=== PATIENT | female | born 1960 | race African-American/Black ===

== ENCOUNTER 2016-07-06 07:52 | Inpatient (IN) ==
[2016-07-06] MEDS ORDERED: SODIUM CHLORIDE 0.9% 500 ML IV STA (08:13)
--- NOTE | 2016-07-06 08:15 | EKG Report ---
Stationary ECG Study [facility] ER Test Date: 07/06/2016 8:00:50 AM Pat Name: JESSY GARCIA Department: Room: Gender: F Talent Associate: : 1960 Requested by: Ryan Pimentel Order Number: [id number] Reading MD: MICHELLE EPSTEIN Intervals [place] Rate: 113 P: 88 FL: 141 QRS: 33 QRSD: 84 T: 37 QT: 320 QTc: 387 Interpretive Statements SINUS TACHYCARDIA WITH OCCASIONAL SUPRAVENTRICULAR PREMATURE COMPLEXES At 113 bpm Low voltage Electronically Signed On 07-10-16 15:58:31 CDT by MICHELLE EPSTEIN [email or web address]
--- NOTE | 2016-07-06 08:29 | CT Report ---
CT head/brain wo con Indication: Syncope Comparison: None Technique: Multiple axial tomographic images of the brain were obtained without the use of intravenous contrast. Findings: Midline structures are nondisplaced. There is no acute intracranial hemorrhage or evidence of hydrocephalus. Mild senescent mineralization of the bilateral basal ganglia. Mild global volume loss present. Mild periventricular and subcortical hypoattenuation noted which is nonspecific but consistent with chronic microvascular ischemic change. Old appearing deformity of the medial wall of the left orbit. Paranasal sinuses and mastoid air cells are clear. IMPRESSION: No acute intracranial abnormality demonstrated. The CT exam was performed using one or more of the following dose reduction techniques: Automated exposure control, adjustment of the mA and/or kV according to patient size, or use of iterative reconstruction technique. PROCEDURE INTERPRETED AT [facility] DEPARTMENT OF RADIOLOGY Final Report Signed by: Dr Franklyn Spence
[2016-07-06 08:32] LABS: Immature Granulocytes % 0.5 %; Immature Granulocytes Absolute 0.01 #; Lymphocytes # 1.1 10*3/uL (1.4-4.0); Lymphocytes % 53.4 % (21.3-54.2); Mean Corpuscular Hemoglobin 27 PG (27-34); Mean Corpuscular Volume 78.5 FL (87-102); Monocytes # 0.3 10*3/uL (0.11-0.8); Monocytes % 14.9 % (1.7-12.7); Neutrophils # 0.7 10*3/uL (1.4-7.4); Neutrophils % 31.2 % (38.7-73.9); Red Blood Count 1.95 MC/CUMM (3.8-5.5); Red Cell Distribution Width 16.9 % (9.3-17.3); White Blood Count 2.1 T/CUMM (4-12)
[2016-07-06 08:37] LABS: Hematocrit 15.3 VOL% (35.7-47.0); Hemoglobin 5.2 GM/DL (12.0-16.0); Platelet Count 50 T/CUMM (130-400)
[2016-07-06 08:38] LABS: INR 1.2
--- NOTE | 2016-07-06 08:39 | Emergency Department Note ---
Rafa Cowart Gwan, am scribing for, and in the presence of, Ryan Warner MD 08:22 . Alana Cowart James D, MD, personally performed the services described in this documentation, ascribed by Katia Craig in my presence, and it is both accurate and complete 837 . Arrival - Arrival Chief Complaint: Syncope Stated Complaint: Syncope Mode of Arrival: Ambulatory Limitations: No Limitations Source: Patient, Old Records Reviewed, RN Notes Reviewed Time Seen by Provider: 07/06/16 07:55 - History of Present Illness HPI Narrative: Patient is a 56 y/o female who presents to the ED for further evaluation s/p syncopal episode with an onset this morning. Patient has a PMHx of Ovarian CA and family confirmed that her last chemo tx was 3 weeks ago. Patient stated that she was getting ready to go for chemo this morning and she felt near syncope upon being ambulatory. She continued to say that after resting for a short period of time, her sxs did not resolve prompting her visit to the ED for further evaluation. She is also c/o dysuria, nausea and that she last vomit yesterday. Patient confirmed that she was dx with CA 01/2016, that she also has a hx of blood clots in her lungs and that she is currently taking Xarelto. She denies any melena, chest pain or SOB. Patient is followed by OBGYN Oncologist Dr. Sachin Levine III in [facility]. Onset (ago): hour(s) Consistency: constant Severity: moderate Allergies/Adverse Reactions: Allergies Allergy/AdvReac Type Severity Reaction Status Date / Time No Known Allergies Allergy Verified 01/08/16 15:43 Home Medications: Home Medications Medication Instructions Recorded Confirmed Type Furosemide Tab [Lasix Tab] 20 mg PO DAILY 01/08/16 05/29/16 History HYDROcodone/ACETAMIN 10-325 [[place] 1 tablet PO BID 01/08/16 05/29/16 History 10-325] Levothyroxine Tab [Synthroid Tab] 50 mcg PO DAILY 01/08/16 05/29/16 History Montelukast Tab [Singulair Tab] 10 mg PO DAILY 01/08/16 05/29/16 History Omeprazole 40 mg PO DAILY 01/08/16 05/29/16 History Metoprolol Succinate Xl [Toprol Xl] 50 mg PO BID PRN 04/06/16 05/29/16 History Rivaroxaban [Xarelto] 20 mg PO 1700 04/06/16 05/29/16 History Spironolactone 50 mg PO DAILY 04/06/16 05/29/16 History Metoclopramide Tab [Reglan Tab] 5 mg PO ACHS #120 tablet 05/29/16 Rx Polyethylene Glycol Powder 17 gm PO DAILY #12 pack 05/29/16 Rx [Miralax] Promethazine Tab [Phenergan Tab] 12.5 mg PO Q6H #20 tablet 05/29/16 Rx Review of System - Review of System 12 point system: reviewed and no additional remarkable complaints except as stated - Review of System Constitutional: Absent: chills, fever Eyes: Absent: discharge, pain Head/Ears/Nose/Throat: Absent: earache Respiratory: Absent: cough Cardiovascular: Present: as per HPI, syncope Gastrointestinal: Present: as per HPI, nausea. Absent: abdominal pain, vomiting Genitourinary female: Present: as per HPI, dysuria Medical,Surgical,& Family Hx - Medical History Cardio: History of: Cardiac Dysrhythmia (TACHYCARDIA), Hypertension Endocrine: History of: Diabetes Mellitus (NIDDM), Thyroid Disorder Respiratory: History of: Asthma, Pulmonary Embolism Gastrointestinal: History of: GERD Reproductive: History of: Reproductive Cancer (OVARIAN CANCER) Other: History of: Miscellaneous Medical Problems (obesity) - Family History Family History: Reports;: Family Cancer, Family Diabetes, Family Hypertension - Social History Smoking Status: Never smoker Exam Physical Examination: GENERAL: This is an black female in no apparent distress. VITAL SIGNS: HEENT: Head is normocephalic and atraumatic. Pupils are equally round and reactive to light. Extraocular movement are intact. Oropharynx is benign with pale mucous membranes/ pale conjunctiva. NECK: Neck is soft and supple without tenderness. There are no masses. There is no lymphadenopathy. LUNGS: Lungs are clear to auscultation bilaterally. Chest rises symmetrically. There is no chest wall tenderness. CV: Heart is regular rate and rhythm without murmurs, rubs, or gallops. ABDOMEN: Abdomen is soft, non-tender to palpation. There are no abnormal masses palpated. There is no organomegaly. Bowel sounds are present and active. SKIN: Skin is warm and dry. No rash. Patient has pale palms. EXTREMITIES: Patient has full range of motion without tenderness. There is no pedal edema. NEUROLOGIC: Awake, alert, and oriented x4. Cranial nerves II through XII are grossly intact. There are no motorsensory deficits. PSYCHIATRIC: Normal affect. Normal mood. Vital Signs: Vital Signs Temperature 97.9 F 07/06/16 07:55 Pulse Rate 99 H 07/06/16 08:45 Respiratory Rate 18 07/06/16 08:45 Blood Pressure 126/78 07/06/16 08:45 O2 Sat by Pulse Oximetry 100 07/06/16 08:45 Course - Consultations Consultation #1: Discussed with hospitalist. Patient will be admitted to their service. Time: 08:38 Results - Labs CBC & BMP: 07/06/16 08:18 Lab Results: I have reviewed the patients labs Labs: Laboratory Tests 07/06/16 07/06/16 08:18 08:18 WBC 2.1 L Hgb 5.2 L* Hct 15.3 L* Plt Count 50 L INR 1.2 Laboratory Tests 07/06/16 07/06/16 08:18 08:18 WBC 2.1 L RBC 1.95 L Hgb 5.2 L* Hct 15.3 L* MCV 78.5 L Plt Count 50 L Neut % (Auto) 31.2 L [place] % (Auto) 14.9 H Neut # (Auto) 0.7 L Lymph # (Auto) 1.1 L Segmented Neutrophils 34 L INR 1.2 PT Patient/Control Mix 13.0 - EKG EKG results: interpreted by ERMD - Impressions EKG: Sinus tachycardia with a rate of 113, occasional supraventricular premature complexes, nonspecific ST-T wave changes, low voltage QRS. - Diagnostic Findings Procedure: Chest x-ray: report reviewed by me, image reviewed by me (No infiltrates, no pleural effusions.), CT: report reviewed by me, image reviewed by me (Head CT: No acute intracranial abnormality demonstrated. ) Disposition Clinical Impression: Ovarian cancer, Anemia, History of pulmonary embolism, Thrombocytopenia Case discussed with: patient, patient's family Disposition: Still a Patient Condition: Stable Time of Disposition: 08:37
--- NOTE | 2016-07-06 08:41 | XRay Report ---
XR chest 1V portable Indication: SOB Comparison: None Technique: Single frontal view of the chest Findings: Heart size appears within normal limits. Port catheter tip noted within the SVC. No focal consolidation, pleural effusion, or pneumothorax. Osseous and surrounding soft tissue structures demonstrate no acute abnormality. IMPRESSION: No acute cardiopulmonary process demonstrated. PROCEDURE INTERPRETED AT [facility] DEPARTMENT OF RADIOLOGY Final Report Signed by: Dr Franklyn Spence
[2016-07-06 08:54] LABS: Band Neutrophils 1 % (0-10); Hypochromasia 1+; Lymphocytes 53 % (20-55); Metamyelocytes 1 %; Microcytosis 1+; Nucleated Red Blood Cells 3 (0-5); Platelet Estimate Decreased; Segmented Neutrophils 34 % (50-85); Total Cells Counted 100
[2016-07-06 08:55] LABS: Ovalocytes Slight; Target Cells Slight
--- NOTE | 2016-07-06 09:24 | Hospitalist History & Physical ---
<Ralf Castrejon - Last Filed: 07/06/16 10:01> Assessment and Plan (1) Ovarian cancer Status: Acute Assessment and plan: Patient being followed by Dr. Sachin Morales in [facility]. Current Visit: Yes (2) Anemia Status: Acute Assessment and plan: Patient admitted to the oncology unit. Telemetry monitoring. Transfuse 2 units of blood initially then recheck H&H. Repeat labs in a.m. Gentle hydration. Current Visit: Yes (3) History of pulmonary embolism Status: Acute Assessment and plan: Pt. has IVC filter in place. Confirmed by CXR Current Visit: Yes (4) Thrombocytopenia Status: Acute Assessment and plan: Secondary to ovarian cancer. Pt. currently taking chemotherapy. Current Visit: Yes History of Present Illness Chief complaint: syncopal epsiode History of present illness: Ms. Pozo is a 56-year-old black female ovarian cancer patient with a history of hypertension and pulmonary emboli (IVC filter in place)that presented to the ED via EMS today after having a syncopal episode at home. The patient was on her way to chemotherapy with Dr. Sachin Morales in [place], [place] and was being wheeled out to the car when she lost consciousness for about a minute. This was witnessed by her daughter was present at the bed side. Patient states she has been feeling lightheaded and weak for the past couple of days. This has been associated with shortness of breath. Pt states that a similar episode occurred 3 weeks ago before her last chemo session. Pt denies loss of vision or hearing, numbness or tingling. Pt reports nausea and vomiting states it has been going on since chemo. On arrival to the ED, patients H&H was found to be 5.2 and 15.3. Patient was admitted to the hospitalist service for further evaluation and treatment. Home Medications Medication Instructions Recorded Confirmed Type Furosemide Tab [Lasix Tab] 20 mg PO QAM 01/08/16 07/06/16 History HYDROcodone/ACETAMIN 10-325 [[place] 1 tablet PO BID PRN 01/08/16 07/06/16 History 10-325] Levothyroxine Tab [Synthroid Tab] 50 mcg PO QAM 01/08/16 07/06/16 History Montelukast Tab [Singulair Tab] 10 mg PO QPM 01/08/16 07/06/16 History RX: Omeprazole 40 mg PO QAM 01/08/16 07/06/16 History RX: Spironolactone 50 mg PO QAM 04/06/16 07/06/16 History Rivaroxaban [Xarelto] 20 mg PO 1700 04/06/16 07/06/16 History Metoclopramide Tab [Reglan Tab] 5 mg PO ACHS #120 tablet 05/29/16 07/06/16 Rx Polyethylene Glycol Powder 17 gm PO DAILY PRN 07/06/16 07/06/16 History [Miralax] Allergies Allergy/AdvReac Type Severity Reaction Status Date / Time No Known Allergies Allergy Verified 01/08/16 15:43 Medical,Surgical,& Family Hx - Medical History Cardio: History of: Cardiac Dysrhythmia (TACHYCARDIA), Hypertension Endocrine: History of: Diabetes Mellitus (NIDDM), Thyroid Disorder Respiratory: History of: Asthma, Pulmonary Embolism Gastrointestinal: History of: GERD Reproductive: History of: Reproductive Cancer (OVARIAN CANCER) Other: History of: Miscellaneous Medical Problems (obesity) - Family History Family History: Reports;: Family Cancer, Family Diabetes, Family Hypertension - Social History Smoking Status: Never smoker Frequency of Alcohol Use: None Type of Drug Use: Unknown Marital Status: Unknown Lives With:: Children Functional capacity: uses cane/walker - Constitutional Constitutional: Present: fatigue, weakness. Absent: fever(s) - EENT Eyes: Absent: blurry vision, loss of vision Ears: Absent: decreased hearing, ear discharge Nose, mouth and throat: Absent: epistaxis, headache(s) - Cardiovascular Cardiovascular: Present: dyspnea on exertion, edema, lightheadedness. Absent: chest pain at rest - Respiratory Respiratory: Present: dyspnea on exertion. Absent: wheezing - Gastrointestinal Gastrointestinal: Present: nausea, vomiting. Absent: abdominal pain - Genitourinary Genitourinary: Present: hematuria. Absent: difficulty urinating - Musculoskeletal Musculoskeletal: Present: muscle weakness. Absent: muscle cramps - Neurological Neurological: Present: dizziness. Absent: confusion, numbness - Psychiatric Psychiatric: Absent: confusion - Endocrine Endocrine: Present: cold intolerance Exam - Constitutional General appearance: no acute distress, over weight - Head Head exam: Present: normal inspection, normocephalic - Eye Eye exam: Present: EOMI. Absent: scleral icterus Pupils: Present: KELI. Absent: fixed - Respiratory Respiratory exam: Present: clear to auscultation bilaterally. Absent: wheezes - Cardiovascular Cardiovascular exam: Present: regular rate and rhythm - GI/Abdominal GI/Abdominal exam: Present: normal bowel sounds, soft. Absent: tenderness - Extremities Exam Extremities exam: Present: normal capillary refill, full ROM, edema - Neurological Exam Neurological exam: Present: alert, oriented X3, normal gait - Skin Skin exam: Present: warm, dry, pallor Results - Labs CBC & BMP: 07/06/16 08:18 07/06/16 08:18 Lab Results: I have reviewed the past 24 hour labs <Vero Hodges - Last Filed: 07/06/16 15:40> History of Present Illness History of present illness: Ms. Pozo is a 56 year old female with a history of ovarian cancer currently undergoing chemotherapy who presented with a chief complaint of weakness and syncope. According to the patient and the daughter she has been feeling weak with dizziness for approximately 2 weeks. She was sitting in her wheelchair preparing to go out of town for chemo today when she suddenly felt weak and her head rolled back and her eyes rolled to the back of her head. Daughter reports that she lost consciousness for approximately 1 minute. She did not hit her head or fall. She denies any tongue biting, urinary or fecal incontinence or jerking. Patient reports that she has had a poor appetite over the last few weeks due to chemotherapy and she did not eat breakfast this morning. She does report intermittent nausea and vomiting and her last emesis was 1 day ago. She denies any abdominal pain. She reports some intermittent dysuria and saw 2 small specks of hematuria 2 weeks ago. Her oncologist was notified and she has noted none since. She denies any melena or bright red blood per rectum. She denies any epistaxis. No bleeding gums. A 10 point review of systems was reviewed with the patient and daughter and was otherwise unremarkable. Past medical history: Hypertension, ovarian cancer, PE status post IVC filter, thrombocytopenia, obstructive sleep apnea (patient denies--this was listed in her old records), hypothyroidism, enlarged heart, GERD Past surgical history: 2, Mediport placement, paracentesis 2 MEDS: Reviewed Allergies: No known drug allergies Family history: Mother had diabetes mellitus and breast cancer; 4 sisters and niece-breast cancer; 1 sister with ovarian cancer Social history: She denies any tobacco alcohol or illicit drug use. She is . Lives with her 2 daughters.. She is a full code. PE: Vitals reviewed GEN: A and O x 3, pale HEENT: pale conjunctiva, PERRL, EOMI, sclera clear NECK: Supple, no JVD CV: RRR no M LUNGS: CTAB nonlabored ABDOMEN: Soft, NT, ND, +BS EXT: Warm no c/c/e NEURO: nonfocal. labs/ Investigative studies reviewed A/P: 1. Symptomatic anemia in a patient with pancytopenia likely due to chemotherapy - transfuse 2 units of PRBCs. Will ask hematology to see as pt may benefit from neupogen prior to next chemo treatment - recheck H and H - check Vitamin B12, folic acid, iron, tibc and ferritin - FOBT and check UA - Check orthostatics after transfusion. 2. Ovarian cancer currently undergoing chemotherapy - ask hematology to eval. Hold chemo for now 3. Hypokalemia - replace. Check Mg and Phos and replace as needed 4. History of PE s/p IVC filter 5. 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 Exam - Constitutional Vitals: Period Temp Pulse Resp BP Sys/Greene Pulse Ox Last 24 Hr 96.3 F-98 F 85-117 18-20 94-139/56-77 100 Results - Labs CBC & BMP: 07/06/16 08:18 07/06/16 08:18
[2016-07-06 09:27] LABS: Apearance,Urine CLOUDY (Clear); Bacteria,Urine Many /HPF (Few); Bilirubin,Urine Negative (Negative); Blood, Urine Moderate mg/dL (Negative); Glucose,Urine (UA) Negative (Negative); Ketones,Urine 5 mg/dL (Negative); Mucus,Urine Occasional /LPF (Occasional); Nitrite,Urine Negative (Negative); Protein,Urine Negative; RBC,Urine 14 /HPF (0-4); Squamous Epithelial Cell,Urine Occasional /HPF (0-10); Urine Color Yellow (Yellow); WBC,Urine 59 /HPF (0-6)
[2016-07-06 09:52] LABS: Albumin 2.4 G/DL (3.4-5.0); Calcium 6.5 MG/DL (8.5-10.1); Osmolality,Calculated 278.3 MOS/KG (273-304); Potassium 3.1 MMOL/L (3.5-5.1); Total Protein 6.4 G/DL (6.4-8.3); Troponin I Only 0.044 NG/ML (0.00-0.045)
[2016-07-06] MEDS ORDERED: ACETAMINOPHEN 325 MG TABLET PO PRN (10:00)
[2016-07-06] MEDS ORDERED: SODIUM CHLORIDE 0.9% 250 ML IV PRN (10:00)
[2016-07-06] MEDS ORDERED: RIVAROXABAN 20 MG TABLET PO SCH (17:00)
[2016-07-06] MEDS: POTASSIUM CHLORIDE 20 MEQ TABLET PO PRN ×3 (17:32→22:48)
[2016-07-06] MEDS ORDERED: HEPARIN LOCK FLUSH 500 UNIT/5 ML SYRINGE IV ONE (18:27)
[2016-07-06 18:55] LABS: % Iron Saturation 93.3 % (18-50); Free T4 (Free Thyroxine) 1.49 NG/DL (0.76-1.46); Magnesium 0.8 MG/DL (1.8-2.4); Phosphorous 2.3 MG/DL (2.5-4.9); Thyroid Stimulating Hormone 3.62 uIU/ml (0.358-3.74)
[2016-07-06 20:31] LABS: 25 Hydroxy Vitamin D Total 5.9 NG/ML
[2016-07-06] MEDS: MONTELUKAST 10 MG TABLET PO SCH (20:46)
[2016-07-07] MEDS: POTASSIUM CHLORIDE 20 MEQ TABLET PO PRN ×3 (00:43→13:36)
[2016-07-07 04:58] LABS: Eosinophils % 0.5 % (0.00-10.9); Hematocrit 20.1 VOL% (35.7-47.0); Immature Granulocytes % 0.5 %; Immature Granulocytes Absolute 0.01 #; Lymphocytes # 1.1 10*3/uL (1.4-4.0); Lymphocytes % 55.9 % (21.3-54.2); Mean Corpuscular HGB Conc 34.8 GM/DL (32-36); Mean Corpuscular Hemoglobin 27 PG (27-34); Mean Corpuscular Volume 78.5 FL (87-102); Mean Platelet Volume 12.1 FL (9.6-12.0); Monocytes # 0.4 10*3/uL (0.11-0.8); Monocytes % 21.3 % (1.7-12.7); Neutrophils # 0.4 10*3/uL (1.4-7.4); Neutrophils % 21.8 % (38.7-73.9); Platelet Count 50 T/CUMM (130-400); Red Blood Count 2.56 MC/CUMM (3.8-5.5); Red Cell Distribution Width 16.5 % (9.3-17.3)
[2016-07-07 05:17] LABS: INR 1.1; PT Patient Result 12.2 SECS
[2016-07-07 05:25] LABS: Band Neutrophils 1 % (0-10); Hypochromasia 1+; Lymphocytes 53 % (20-55); Ovalocytes Slight; Platelet Estimate Decreased; Segmented Neutrophils 28 % (50-85); Total Cells Counted 100
[2016-07-07 05:26] LABS: Microcytosis Slight
[2016-07-07 05:42] LABS: Osmolality,Calculated 276.3 MOS/KG (273-304); Potassium 3.5 MMOL/L (3.5-5.1); Risk Ratio 4.88; Thyroid Stimulating Hormone 2.45 uIU/ml (0.358-3.74); VLDL CHOLESTEROL 30.2 MG/DL
[2016-07-07] MEDS: LEVOTHYROXINE 50 MCG TABLET PO SCH (06:50)
[2016-07-07] MEDS ORDERED: FILGRASTIM-SNDZ 300 MCG/0.5 ML SYRINGE SUBCUT ONE (09:14)
--- NOTE | 2016-07-07 09:17 | Hospitalist Progress Note ---
Hospitalist: Subjective Interval history: I feel better but still slightly weak. Tolerating oral intake. No abdominal pain. No melena or bright red blood per rectum. No hematuria. Exam - Constitutional Vitals: Period Temp Pulse Resp BP Sys/Greene Pulse Ox Last 24 Hr 96.3 F-98.7 F 80-93 16-20 94-116/56-78 96-100 Exam: GEN: A and O x 3, pale HEENT: pale conjunctiva, PERRL, EOMI, sclera clear NECK: Supple, no JVD CV: RRR no M LUNGS: CTAB nonlabored ABDOMEN: Soft, NT, ND, +BS EXT: Warm no c/c/e NEURO: nonfocal. Results - Labs CBC & BMP: 07/07/16 02:41 07/07/16 02:41 - Impressions 1. Symptomatic anemia in a patient with pancytopenia likely due to chemotherapy - transfused 2 units of PRBCs. Will transfuse an additional 2 units. will ask hematology to see as pt may benefit from neupogen prior to next chemo treatment - recheck H and H - Vitamin B12, folic acid, iron, tibc and ferritin checked in review - FOBT now sent. UA reviewed. UCx pending - Check orthostatics after transfusion. 2. Ovarian cancer currently undergoing chemotherapy - ask hematology to eval. Hold chemo for now 3. Hypokalemia - replaced. 4. History of PE s/p IVC filter hold blood thinners due to low plt count and increased risk of bleeding. F/U with her oncologist 5. Morbid obesity BMI 43 6. Acute cystitis- start nitrofurantoin and f/u UCx Possible dc after eval by hematology/ oncology and next 4 units complete D/W pt, family, HOUSING LIAISON and all questions answered.
--- NOTE | 2016-07-07 09:18 | Oncology Consult Note ---
Assessment and Plan (1) Ovarian cancer Status: Acute Current Visit: Yes (2) Anemia Status: Acute Current Visit: Yes (3) Thrombocytopenia Status: Acute Current Visit: Yes History of Present Illness History of present illness: Ms. Pozo is a 56 year old female with advanced ovarian cancer being treated in [place] who was admitted yesterday after a syncopal episode. She was found to have a hemoglobin around 5. She has been transfused 2 units of blood and feels significantly better. Oncology here has been consulted for any further recommendations. The patient states she was due chemotherapy yesterday. She states due to syncopal episode she was not able to receive it. The doctors in [place] had recently changed her chemotherapy regimen and this is what has most likely led to her new onset pancytopenia. Since she feels much better I do not see any reason for further transfusions at this time. She can be discharged home from an oncology standpoint we will give her 1 dose of Neupogen today to try to jump start her white blood cell count. She states she has never received Neupogen or Neulasta. She needs to reestablish follow-up with her primary oncologist sometime in the next week or 2. Home Medications Medication Instructions Recorded Confirmed Type Furosemide Tab [Lasix Tab] 20 mg PO QAM 01/08/16 07/06/16 History HYDROcodone/ACETAMIN 10-325 [[place] 1 tablet PO BID PRN 01/08/16 07/06/16 History 10-325] Levothyroxine Tab [Synthroid Tab] 50 mcg PO QAM 01/08/16 07/06/16 History Montelukast Tab [Singulair Tab] 10 mg PO QPM 01/08/16 07/06/16 History Omeprazole 40 mg PO QAM 01/08/16 07/06/16 History Rivaroxaban [Xarelto] 20 mg PO 1700 04/06/16 07/06/16 History Spironolactone 50 mg PO QAM 04/06/16 07/06/16 History Metoclopramide Tab [Reglan Tab] 5 mg PO ACHS #120 tablet 05/29/16 07/06/16 Rx Polyethylene Glycol Powder 17 gm PO DAILY PRN 07/06/16 07/06/16 History [Miralax] Allergies Allergy/AdvReac Type Severity Reaction Status Date / Time No Known Allergies Allergy Verified 01/08/16 15:43 Medical,Surgical,& Family Hx - Medical History Cardio: History of: Cardiac Dysrhythmia (TACHYCARDIA), Hypertension Comment Only: Cardiovascular Problems (filter for blood clots) Endocrine: History of: Diabetes Mellitus (NIDDM), Thyroid Disorder Respiratory: History of: Asthma, Pulmonary Embolism Gastrointestinal: History of: GERD Reproductive: History of: Reproductive Cancer (OVARIAN CANCER) Other: History of: Miscellaneous Medical Problems (obesity) - Surgical History Cardiac Surgeries: Sugical HX of: Vascular Access Devices - Family History Family History: Reports;: Family Cancer, Family Diabetes, Family Hypertension - Social History Smoking Status: Never smoker Frequency of Alcohol Use: None Type of Drug Use: Unknown Exam - Constitutional Vitals: Period Temp Pulse Resp BP Sys/Greene Pulse Ox Last 24 Hr 96.3 F-98.7 F 80-117 16-20 94-139/56-78 96-100 General appearance: normal weight, no acute distress - Head Head Exam: Present: normocephalic, atraumatic - Eye Eye Exam: Present: EOMI Pupils: Present: PERRL - ENT ENT exam: Present: normal exam, normal oropharynx - Neck Neck exam: Absent: lymphadenopathy, thyromegaly - Respiratory Respiratory exam: Present: CTAB. Absent: wheezes Results - Labs CBC & BMP: 07/07/16 02:41 07/07/16 02:41 Lab Results: I have reviewed the past 24 hour labs
[2016-07-07] MEDS: PANTOPRAZOLE 40 MG TABLET PO SCH (09:26)
--- NOTE | 2016-07-07 09:39 | Discharge Summary ---
<Ralf Castrejon - Last Filed: 07/07/16 09:20> Hospital Course - Hospital Course Hospital Course: Ms. Pozo is a 56-year-old black female ovarian cancer patient with a history of hypertension, DAYRON, thrombocytopenia, GERD, enlarged heart and pulmonary emboli (IVC filter in place)that presented to the ED via EMS today after having a syncopal episode at home. The patient was on her way to chemotherapy with Dr. Sachin Morales in [place], [place] and was being wheeled out to the car when she lost consciousness for about a minute. She felt weak and her head rolled back and her eyes rolled back into her head. This was witnessed by her daughter who was present in the ED. Patient stated she had been feeling lightheaded and weak for the past couple of days. This has been associated with shortness of breath. Pt states that a similar episode occurred 3 weeks ago before her last chemo session. On arrival to the ED, patients H&H was found to be 5.2 and 15.3. Patient was admitted to the hospitalist service for further evaluation and treatment. Oncology was also consulted to evaluate patient. Pt. received 2 units of PRBCs and her H&H improved. Pt. was reported to be feeling better. She was seen by oncology this morning for evaluation. Dr. Desai didn't suggest any further transfusions at this point. He has ordered a dose of Neupogen this am and states that the patient can be discharged. She is to follow up with her primary oncologist in the next week. Pt. to be discharged. Diagnosis - Discharge Diagnosis (1) Ovarian cancer Status: Acute (2) Anemia Status: Acute (3) History of pulmonary embolism Status: Acute (4) Thrombocytopenia Status: Acute Specialty Discharge - Follow Up or Referrals Follow up with: Sachin Levine [Other] - 2 Weeks (Oncologist at [facility] in [facility]) , PCP [Other] - 1 Week Discharge Plan - Discharge Data Disposition: Disch To Home/Self Care - Discharge Medications New Acetaminophen Tab [Tylenol Tab] 650 mg PO Q4H PRN #0 tablet PRN Reason: Fever, Headache, Mild Pain Ergocalciferol [Drisdol] 50,000 unit PO Q7D #4 capsule Nitrofurantoin Macro/[place] [Macrobid] 100 mg PO Q12H #20 capsule Continue Levothyroxine Tab [Synthroid Tab] 50 mcg PO QAM HYDROcodone/ACETAMIN 10-325 [[place] 10-325] 1 tablet PO BID PRN PRN Reason: Pain Omeprazole 40 mg PO QAM Montelukast Tab [Singulair Tab] 10 mg PO QPM Polyethylene Glycol Powder [Miralax] 17 gm PO DAILY PRN PRN Reason: Constipation Spironolactone 50 mg PO QAM Metoclopramide Tab [Reglan Tab] 5 mg PO ACHS #120 tablet Changed Furosemide Tab [Lasix Tab] 20 mg PO QAM PRN #0 PRN Reason: Edema Discontinued Rivaroxaban [Xarelto] 20 mg PO 1700 - Follow Up or Referral - Forms/Instructions Exam - Constitutional Vitals: Period Temp Pulse Resp BP Sys/Greene Pulse Ox Last 24 Hr 96.0 F-98.7 F 80-98 16-20 95-119/60-78 95-100 Discharge Results Procedures and tests throughout hospitalization: Pending Orders 07/06/16 Urine Culture Routine 07/08/16 04:00 Basic Metabolic Panel IN AM Comp Blood Count Auto Diff IN AM Labs on day of discharge: Labs from last 24 hours 07/07/16 07/07/16 07/07/16 11:28 02:41 02:41 WBC RBC Hgb Hct MCV MCH MCHC RDW Plt Count MPV Neut % (Auto) Lymph % (Auto) [place] % (Auto) Eos % (Auto) Baso % (Auto) Neut # (Auto) Lymph # (Auto) [place] # (Auto) Eos # (Auto) Baso # (Auto) Total Counted Immature Gran % Nucleated RBC % Immature Gran # Segmented Neutrophils Band Neutrophils Lymphocytes Monocytes Nucleated RBCs # Platelet Estimate Hypochromasia Microcytosis Ovalocytes Morphology Comment INR 1.1 PT Patient/Control Mix 12.2 Sodium 141 Potassium 3.5 Chloride 106 Carbon Dioxide 24 Anion Gap 14.5 BUN 5 L Creatinine 0.80 GFR Calculation 117 BUN/Creatinine Ratio 6.00 Glucose 78 Calculated Osmolality 276.3 Calcium 6.0 L Phosphorus Magnesium Iron TIBC % Saturation Ferritin Triglycerides 151 H Cholesterol 166 LDL Cholesterol 100.0 VLDL Cholesterol 30.2 HDL Cholesterol 34 L Heart Disease Risk Ratio 4.88 Vitamin B12 25-OH Vitamin D Total Free T4 TSH 3rd Generation 2.450 Blood Type Cancelled Antibody Screen Cancelled Crossmatch See Detail Blood Bank Comment Cancelled 07/07/16 07/06/16 07/06/16 02:41 20:04 18:24 WBC 2.0 L RBC 2.56 L D Hgb 7.0 L D Hct 20.1 L MCV 78.5 L MCH 27 MCHC 34.8 RDW 16.5 Plt Count 50 L MPV 12.1 H Neut % (Auto) 21.8 L Lymph % (Auto) 55.9 H Erie % (Auto) 21.3 H Eos % (Auto) 0.5 Baso % (Auto) 0.0 Neut # (Auto) 0.4 L Lymph # (Auto) 1.1 L [place] # (Auto) 0.4 Eos # (Auto) 0.0 Baso # (Auto) 0.0 Total Counted 100 Immature Gran % 0.5 Nucleated RBC % 0.0 Immature Gran # 0.01 Segmented Neutrophils 28 L Band Neutrophils 1 Lymphocytes 53 Monocytes 18 H Nucleated RBCs # 0.00 Platelet Estimate Decreased Hypochromasia 1+ Microcytosis Slight Ovalocytes Slight Morphology Comment INR PT Patient/Control Mix Sodium Potassium Chloride Carbon Dioxide Anion Gap BUN Creatinine GFR Calculation BUN/Creatinine Ratio Glucose Calculated Osmolality Calcium Phosphorus 2.3 L Magnesium 0.8 L Iron 153 TIBC 164 L % Saturation 93.3 H Ferritin 3459.0 H Triglycerides Cholesterol LDL Cholesterol VLDL Cholesterol HDL Cholesterol Heart Disease Risk Ratio Vitamin B12 1482 H 25-OH Vitamin D Total 5.9 Free T4 1.49 H TSH 3rd Generation 3.620 Blood Type Antibody Screen Crossmatch Blood Bank Comment 07/06/16 10:00 WBC RBC Hgb Hct MCV MCH MCHC RDW Plt Count MPV Neut % (Auto) Lymph % (Auto) [place] % (Auto) Eos % (Auto) Baso % (Auto) Neut # (Auto) Lymph # (Auto) [place] # (Auto) Eos # (Auto) Baso # (Auto) Total Counted Immature Gran % Nucleated RBC % Immature Gran # Segmented Neutrophils Band Neutrophils Lymphocytes Monocytes Nucleated RBCs # Platelet Estimate Hypochromasia Microcytosis Ovalocytes Morphology Comment INR PT Patient/Control Mix Sodium Potassium Chloride Carbon Dioxide Anion Gap BUN Creatinine GFR Calculation BUN/Creatinine Ratio Glucose Calculated Osmolality Calcium Phosphorus Magnesium Iron TIBC % Saturation Ferritin Triglycerides Cholesterol LDL Cholesterol VLDL Cholesterol HDL Cholesterol Heart Disease Risk Ratio Vitamin B12 25-OH Vitamin D Total Free T4 TSH 3rd Generation Blood Type Cancelled Antibody Screen Cancelled Crossmatch See Detail Blood Bank Comment Cancelled Preliminary micro results at discharge 07/06/16 Unknown Urine Culture - Preliminary Urine,Catheterized Gram Negative Rods DS: Provider Date of admission: 07/06/16 08:49 Primary care physician: . No PCP Attending physician on admission: Vero Hodges MD Consults: 07/06/16 10:05 Consult to Dietitian [CONS] Routine Reason for Dietitian: Diet Recommendations 07/06/16 10:09 Consult to Pastoral Services [CONS] Routine Comment: Pastoral Screen: Request Supply Chain Planner Visit 07/06/16 15:46 Consult to Physician [CONS] Routine Comment: pancytopenia undergoing chemo. ?UTI. ?Neupogen Consulting Provider: Len Desai Consulting Provider Notified: Yes When should Consulting Provider be notified: Now Consult to Specialist Group: Hematology When should Consulting Provider be notified: Now Person Notified: DA Date Notified: 07/07/16 Time Notified: 09:38 Discharging clinician: Ralf Castrejon NP <Vero Hodges - Last Filed: 07/07/16 15:40> Hospital Course - Hospital Course Hospital Course: 2 additional units were ordered and patient was encouraged to follow-up with her oncologist. She was noted to be vitamin D deficient and was started on supplementation for this. Stool guaiac was pending. Urinalysis suggested urinary tract infection and urine culture was growing gram-negative rods. Patient was started on nitrofurantoin and instructed to follow-up with her primary care doctor to ensure this was adequate treatment. When she was cleared by all consultants and blood transfusion complete patient was discharged home for ongoing care. - Time spent with patient Time with patient DS: Greater than 30 minutes (37 minutes arranging this discharge) Diagnosis - Discharge Diagnosis (1) Ovarian cancer Status: Acute (2) Anemia Status: Acute (3) History of pulmonary embolism Status: Acute (4) Thrombocytopenia Status: Acute Discharge Plan - Discharge Data Condition at Discharge: Stable Discharge Diet: advance to your usual diet Activity: other (Avoid NSAIDs, aspirin, blood thinners) Contact your physician if you experience:: fever over 101, Difficulty voiding, Redness or swelling, Nausea/Vomiting, Shortness of breath, Bleeding, pain uncontrolled by pain medications - Forms/Instructions Additional Discharge Instructions: Please send a copy of this discharge summary to the patient's primary care provider and to Dr. Sachin Levine III oncology in [place], [place] ([facility]) Exam - Constitutional Exam: Please see progress note from earlier today as physical exam is unchanged
[2016-07-07] MEDS ORDERED: SODIUM CHLORIDE 0.9% 250 ML IV PRN (11:28)
[2016-07-07] MEDS ORDERED: ERGOCALCIFEROL 50,000 UNIT CAPSULE PO SCH (15:30)
[2016-07-07] MEDS ORDERED: METOPROLOL TARTRATE 5 MG/5 ML VIAL IV ONE (16:53)
[2016-07-07] MEDS: NITROFURANTOIN MACRO/MONO 100 MG CAPSULE PO SCH (18:37)
[2016-07-07 18:40] LABS: Hematocrit 26.4 VOL% (35.7-47.0)
[2016-07-07 18:41] LABS: Hemoglobin 9.2 GM/DL (12.0-16.0)
[2016-07-07 18:47] LABS: Phosphorous 1.3 MG/DL (2.5-4.9); Potassium 3.9 MMOL/L (3.5-5.1)
[2016-07-07] MEDS: MONTELUKAST 10 MG TABLET PO SCH (20:51)
[2016-07-08 05:24] LABS: Basophils % 0.1 % (0.0-0.8); Eosinophils % 0.3 % (0.00-10.9); Hematocrit 26.4 VOL% (35.7-47.0); Hemoglobin 8.9 GM/DL (12.0-16.0); Immature Granulocytes % 6.2 %; Immature Granulocytes Absolute 0.45 #; Lymphocytes # 1.2 10*3/uL (1.4-4.0); Lymphocytes % 16.9 % (21.3-54.2); Mean Corpuscular HGB Conc 33.7 GM/DL (32-36); Mean Corpuscular Hemoglobin 27 PG (27-34); Mean Corpuscular Volume 79.3 FL (87-102); Mean Platelet Volume 11.3 FL (9.6-12.0); Neutrophils # 4.5 10*3/uL (1.4-7.4); Neutrophils % 62.5 % (38.7-73.9); Red Blood Count 3.33 MC/CUMM (3.8-5.5); Red Cell Distribution Width 18.3 % (9.3-17.3); White Blood Count 7.2 T/CUMM (4-12)
[2016-07-08 05:28] LABS: Platelet Count 45 T/CUMM (130-400)
[2016-07-08 05:47] LABS: Calcium 6.4 MG/DL (8.5-10.1); Osmolality,Calculated 275.4 MOS/KG (273-304); Potassium 3.8 MMOL/L (3.5-5.1)
[2016-07-08] MEDS: LEVOTHYROXINE 50 MCG TABLET PO SCH (06:04)
[2016-07-08] MEDS: ONDANSETRON 4 MG/2 ML VIAL IV PRN (06:41)
--- NOTE | 2016-07-08 07:14 | EKG Report ---
Stationary ECG Study [facility] Test Date: 07/07/2016 5:00:29 PM Pat Name: JESSY GARCIA Department: Room: 426 Gender: F Bank Analyst: : 1960 Requested by: Eli Dasilva Order Number: [id number] Reading MD: THANIA JEFFERSON Intervals [place] Rate: 193 P: 999 PA: 0 QRS: 26 QRSD: 81 T: 23 QT: 235 QTc: 333 Interpretive Statements SUPRAVENTRICULAR TACHYCARDIA CONSIDER ANTEROSEPTAL INFARCT OR LEAD PLACEMENT Electronically Signed On 07-10-16 16:24:27 CDT by THANIA JEFFERSON [email or web address]
[2016-07-08 08:02] LABS: Band Neutrophils 25 % (0-10); Lymphocytes 11 % (20-55); Segmented Neutrophils 55 % (50-85); Total Cells Counted 100
[2016-07-08 08:03] LABS: Hypochromasia 1+; Macrocytosis 1+; Platelet Estimate Decreased; Polychromasia Slight; Target Cells Slight
[2016-07-08] MEDS ORDERED: MAGNESIUM SULF RIDER 2 GM in PREMIX 1 EACH IV PRN (08:27)
[2016-07-08] MEDS ORDERED: MAGNESIUM SULF RIDER 4 GM in PREMIX 1 EACH IV PRN (08:27)
[2016-07-08] MEDS: NITROFURANTOIN MACRO/MONO 100 MG CAPSULE PO SCH ×2 (09:34→21:02)
[2016-07-08] MEDS: PANTOPRAZOLE 40 MG TABLET PO SCH (09:34)
--- NOTE | 2016-07-08 09:47 | Hospitalist Progress Note ---
Assessment and Plan (1) Ovarian cancer Status: Acute Current Visit: Yes (2) Anemia Status: Acute Current Visit: Yes (3) History of pulmonary embolism Status: Acute Current Visit: Yes (4) Thrombocytopenia Status: Acute Current Visit: Yes Hospitalist: Subjective Interval history: No cp, SOB, lightheadedness or dizziness, or palpitations. No fever. Tolerating po. Exam - Constitutional Vitals: Period Temp Pulse Resp BP Sys/Greene Pulse Ox Last 24 Hr 96.0 F-98 F 91-112 16-20 95-124/60-83 94-100 Exam: GEN: A and O x 3, pale HEENT: pale conjunctiva, PERRL, EOMI, sclera clear NECK: Supple, no JVD CV: RRR no M LUNGS: CTAB nonlabored ABDOMEN: Soft, NT, ND, +BS EXT: Warm no c/c/e NEURO: nonfocal. Results - Labs CBC & BMP: 07/08/16 04:46 07/08/16 04:46 - Impressions 1. SVT s/p adenosine cardioversion likely due to electrolyte disturbance. Replacing. Check ECHO 2. Hypomagnesemia, hypophosphatemia - replace per protocol 3. Symptomatic anemia in a patient with pancytopenia likely due to chemotherapy. Anemia panel suggests anemia of chronic disease - transfused 4 units of PRBCs. Appreciate Hematology who gave pt neurogen SQ x 1. - recheck H and H - Vitamin B12, folic acid, iron, tibc and ferritin reviewed - FOBT now sent. UA reviewed. UCx pending - Check orthostatics after transfusion. 4. Ovarian cancer currently undergoing chemotherapy - ask hematology to eval. Hold chemo for now 5. Hypokalemia - replaced. 6. History of PE s/p IVC filter hold blood thinners due to low plt count and increased risk of bleeding. F/U with her oncologist 7. Morbid obesity BMI 43 8. Acute cystitis due to ESBL E Coli- Cont nitrofurantoin as it is sensitive for 10 days total. D/W pt, family and all questions answered. Once ECHO complete and if without any significant abnormalities, ok to dc home. Specialty Discharge - Follow Up or Referrals Follow up with: Sachin Levine [Other] - 2 Weeks (Oncologist at [facility] in [facility]) , PCP [Other] - 1 Week
[2016-07-08] MEDS ORDERED: SODIUM PHOSPHATE INJ 30 MMOL in SODIUM CHLORIDE 0.9% 250 ML IV ONE (10:00)
[2016-07-08] MEDS ORDERED: ALUMINUM/MAGNES/SIMETH MAX STR 30 ML UDCUP PO PRN (20:43)
[2016-07-08] MEDS: MONTELUKAST 10 MG TABLET PO SCH (21:02)
[2016-07-09] MEDS: ONDANSETRON 4 MG/2 ML VIAL IV PRN ×2 (02:25→19:27)
[2016-07-09] MEDS: LEVOTHYROXINE 50 MCG TABLET PO SCH (06:32)
[2016-07-09] MEDS: PANTOPRAZOLE 40 MG TABLET PO SCH (10:11)
[2016-07-09] MEDS: NITROFURANTOIN MACRO/MONO 100 MG CAPSULE PO SCH ×2 (10:12→20:36)
[2016-07-09] MEDS ORDERED: HEPARIN LOCK FLUSH 500 UNIT/5 ML SYRINGE IV PRN (11:54)
[2016-07-09] MEDS ORDERED: DIGOXIN 0.5 MG/2 ML AMP IV ONE ×2 (13:04→19:00)
--- NOTE | 2016-07-09 13:47 | Hospitalist Progress Note ---
Assessment and Plan (1) Atrial fibrillation Status: Acute Assessment and plan: The patient has paroxysmal atrial fibrillation and heart rate of about 150. It could be a flutter. The patient will be treated with digoxin to slow the heart rate and perhaps she will convert to sinus rhythm. Will continue supportive care for the patient's ovarian cancer. We will replete magnesium and potassium and recheck electrolytes tomorrow. Current Visit: Yes Qualifiers: Atrial fibrillation type: paroxysmal Qualified Code(s): I48.0 - Paroxysmal atrial fibrillation (2) Ovarian cancer Status: Acute Current Visit: Yes Hospitalist: Subjective Interval history: The patient has developed fast supraventricular tachycardia. The patient does not complain of shortness of breath or angina. The rhythm began about 36 hours ago and continues. We are replacing magnesium and potassium. Exam - Constitutional Vitals: Period Temp Pulse Resp BP Sys/Greene Pulse Ox Last 24 Hr 97.0 F-98.3 F 79-100 18-20 112-131/68-77 92-100 Exam: Constitutional System: Mild distress. No tremulousness. Cheerful but stoic Head: Normocephalic, atraumatic. Ears, Nose and Throat System: No evidence of Otitis or Mastoiditis. No epistaxis or discharge Eyes System: Pupils equal, round, and reactive. Extraocular muscles intact. Neck: Supple, without adenopathy, trace jugular venous distention. No thyromegaly, neck mass, or prior surgery apparent. Respiratory System: Chest few rales in bases to auscultation. Cardiovascular System: Heart with irregular rate and rhythm. No murmur. GI System: Abdomen soft, mildly tender. Distended Results - Labs CBC & BMP: 07/08/16 04:46 07/08/16 04:46 Lab Results: I have reviewed the past 24 hour labs Specialty Discharge - Follow Up or Referrals Follow up with: Sachin Levine [Other] - 2 Weeks (Oncologist at [facility] in [facility]) , PCP [Other] - 1 Week
[2016-07-09] MEDS: MAGNESIUM SULF RIDER 2 GM in PREMIX 1 EACH IV ONE ×2 (14:01→14:49)
[2016-07-09] MEDS: POTASSIUM CHLORIDE 20 MEQ TABLET PO SCH ×2 (14:17→20:35)
[2016-07-09] MEDS ORDERED: MAGNESIUM CITRATE 300 ML BOTTLE PO ONE (14:34)
--- NOTE | 2016-07-09 17:49 | ECHO Report ---
Dulce Pozo Exam Date: 07/08/2016 13:00 Referring Physician: Technologist: Nikole Walters Age: 56 Ht (in): 64 Wt (lb): 250 Gender: F Exam Location: [facility] Echo Indications: thrombocytopenia, run of SVT, ovarian CA, anemia, Hx. pul embolism BP: 104 / 75 HR: 112 Rhythm: Sinus tachycardia Technical Quality: Fair and limited IMPRESSIONS 1. This is a limited study. 2. Left ventricle is normal size with global hypokinesis and ejection fraction 30%. Is probably mild concentric left ventricular hypertrophy. 3. Other cardiac chambers are normal size. 4. Mitral valve mildly thickened. 5. Other valvular structures not adequately visualized. 6. There is no gross or significant valvular Doppler abnormalities. MEASUREMENTS (Male / Female) Normal Values 2D ECHO LV Diastolic Diameter PLAX 4.7 cm 4.2 - 5.9 / 3.9 - 5.3 cm LV Systolic Diameter PLAX 3.6 cm LV Fractional Shortening PLAX 23.1 % IVS Diastolic Thickness 1.1 cm 0.6 - 1.0 / 0.6 - 0.9 cm LVPW Diastolic Thickness 1.2 cm 0.6 - 1.0 / 0.6 - 0.9 cm RV Internal Dim ED PLAX 2.1 cm Aortic Root Diameter 2.2 cm LA Systolic Diameter LX 3.5 cm 3.0 - 4.0 / 2.7 - 3.8 cm DOPPLER TR Peak Velocity 133.0 cm/s TR Peak Gradient 7.1 mmHg FINDINGS Left Ventricle Left ventricle is normal size with global hypokinesis and ejection fraction of 30%. There is probably mild concentric left ventricular hypertrophy. No specific segmental wall motion normality noted. Right Ventricle Normal right ventricular size. Right Atrium Normal right atrial size. Left Atrium Normal left atrial size. Mitral Valve Mild mitral valve is mildly thickened. Trace mitral valve regurgitation. Aortic Valve Aortic valve adequately visualized no gross Doppler abnormalities. Tricuspid Valve Aortic valve minimally visualized but there is no gross Doppler abnormalities. Pulmonic Valve Tricuspid valve is not adequately visualized, normal. Pericardium No pericardial effusion. Aorta Normal size aortic root and proximal ascending aorta. Gómez Andersen MD (Electronically Signed) Final Date: 09 Jul 2016 17:48
[2016-07-09] MEDS ORDERED: PROCHLORPERAZINE 10 MG TABLET PO PRN (20:15)
[2016-07-09] MEDS ORDERED: PROMETHAZINE 25 MG/1 ML VIAL IM PRN (20:15)
[2016-07-09] MEDS ORDERED: METOCLOPRAMIDE 10 MG/2 ML VIAL IV PRN (20:15)
[2016-07-09] MEDS ORDERED: ONDANSETRON 4 MG/2 ML VIAL IV PRN (20:16)
[2016-07-09] MEDS: MONTELUKAST 10 MG TABLET PO SCH (20:36)
[2016-07-10] MEDS: POTASSIUM CHLORIDE 20 MEQ TABLET PO SCH (01:51)
[2016-07-10 05:29] LABS: Calcium 6.5 MG/DL (8.5-10.1); Magnesium 2.4 MG/DL (1.8-2.4); Osmolality,Calculated 272.5 MOS/KG (273-304)
[2016-07-10] MEDS: LEVOTHYROXINE 50 MCG TABLET PO SCH (06:06)
[2016-07-10] MEDS: NITROFURANTOIN MACRO/MONO 100 MG CAPSULE PO SCH (09:52)
[2016-07-10] MEDS: PANTOPRAZOLE 40 MG TABLET PO SCH (09:52)
--- NOTE | 2016-07-10 12:32 | Discharge Summary ---
Hospital Course - Hospital Course Hospital Course: The patient was admitted to the hospital after syncopal episode. The patient has pancytopenia due to chemotherapy for ovarian cancer from her oncologist in [place]. The patient was treated with 2 units of packed red blood cell transfusion and have some improvement in her strength. The patient still had some episodes of supraventricular tachycardia when standing. We repleted magnesium and potassium. The patient has less tendency to tachycardia now. The patient has reached maximum hospital benefit is now discharged home to reestablish care with her primary oncologist. On the date of discharge, chest is clear, heart has regular rate and rhythm, and abdomen is soft. [id number] discharge time 36 minutes. - Time spent with patient Time with patient DS: Greater than 30 minutes Diagnosis - Discharge Diagnosis (1) Atrial fibrillation Status: Resolved (2) Ovarian cancer Status: Chronic Specialty Discharge - Follow Up or Referrals Follow up with: Sachin Levine [Other] - 2 Weeks (Oncologist at [facility] in [facility]) MD PCP [Other] - 1 Week Discharge Plan - Discharge Data Condition at Discharge: Stable Discharge Diet: advance to your usual diet Activity: resume usual activities as tolerated - Discharge Medications New Acetaminophen Tab [Tylenol Tab] 650 mg PO Q4H PRN #0 tablet PRN Reason: Fever, Headache, Mild Pain Ergocalciferol [Drisdol] 50,000 unit PO Q7D #4 capsule Nitrofurantoin Macro/[place] [Macrobid] 100 mg PO Q12H #20 capsule Continue Levothyroxine Tab [Synthroid Tab] 50 mcg PO QAM HYDROcodone/ACETAMIN 10-325 [[place] 10-325] 1 tablet PO BID PRN PRN Reason: Pain Omeprazole 40 mg PO QAM Montelukast Tab [Singulair Tab] 10 mg PO QPM Polyethylene Glycol Powder [Miralax] 17 gm PO DAILY PRN PRN Reason: Constipation Spironolactone 50 mg PO QAM Metoclopramide Tab [Reglan Tab] 5 mg PO ACHS #120 tablet Changed Furosemide Tab [Lasix Tab] 20 mg PO QAM PRN #0 PRN Reason: Edema Discontinued Rivaroxaban [Xarelto] 20 mg PO 1700 - Follow Up or Referral Follow Up: Sachin Levine [Other] - 2 Weeks (Oncologist at [facility] in [facility]) MD, PCP [Other] - 1 Week - Forms/Instructions Exam - Constitutional Vitals: Period Temp Pulse Resp BP Sys/Greene Pulse Ox Last 24 Hr 97.8 F-99.1 F 87-96 18-20 95-124/55-78 94-98 Discharge Results Labs on day of discharge: Labs from last 24 hours 07/10/16 03:34 Sodium 139 Potassium 4.0 Chloride 104 Carbon Dioxide 26 Anion Gap 13.0 BUN 3 L Creatinine 0.70 GFR Calculation 138 BUN/Creatinine Ratio 4.00 L Glucose 88 Calculated Osmolality 272.5 L Calcium 6.5 L Magnesium 2.4 DS: Provider Date of admission: 07/06/16 08:49 Primary care physician: . No PCP Attending physician on admission: Vero Hodges MD Consults: 07/06/16 10:05 Consult to Dietitian [CONS] Routine Reason for Dietitian: Diet Recommendations 07/06/16 10:09 Consult to Pastoral Services [CONS] Routine Comment: Pastoral Screen: Request Retort Cooler Visit 07/06/16 15:46 Consult to Physician [CONS] Routine Comment: pancytopenia undergoing chemo. ?UTI. ?Neupogen Consulting Provider: Len Desai Consulting Provider Notified: Yes When should Consulting Provider be notified: Now Consult to Specialist Group: Hematology When should Consulting Provider be notified: Now Person Notified: DA Date Notified: 07/07/16 Time Notified: 09:38 Discharging clinician: Armond Morfin MD
[2016-07-10 17:18] VITALS: BP 117/85
== END 2016-07-10 17:15 | disposition home health service (06) | DRG 809 ==
LOC: EDBD → EDUNIT# → N.ED 07:52 → N.EDINP 08:49 → SUATTDRO 08:49 → N.4E 09:17
PROVIDERS: ADMIT Pediatrics; ATTEND Internal Medicine